=== PATIENT | female | born 1955 | race Caucasian/White ===

== ENCOUNTER → 2018-05-14 | Outpatient (CLI) | payer OTHER ==
--- NOTE | 2018-05-15 12:55 | MM ---
Reason for exam: screening (asymptomatic). Last mammogram was performed 15 years and 8 months ago. Physical Findings: A clinical breast exam by your physician is recommended on an annual basis and results should be correlated with mammographic findings. MG Screening Mammo w CAD Bilateral CC and MLO view(s) were taken. Prior study comparison: September 13, 2002, bilateral screening mammogram. September 10, 2000, bilateral screening mammogram. The breast tissue is almost entirely fat. Stable benign calcifications. There is no discrete abnormality. No significant changes when compared with prior studies. ASSESSMENT: Benign, BI-RAD 2 RECOMMENDATION: Routine screening mammogram of both breasts in 1 year.
== END | disposition home or self-care (01) ==
LOC: RADMAMWWP 07:52
PROVIDERS: ATTEND Family Medicine
DX: Z12.31 Encounter for screening mammogram for malignant neoplasm of breast (principal)
CPT/HCPCS: 77067

== ENCOUNTER 2018-05-18 08:34 | Day surgery (SDC) | payer OTHER ==
[2018-05-14 09:20] VITALS: BMI 41.4
[~2018-05-18 08:34] MED LIST: LACTATED RINGERS 1,000 ML IV SCH
[2018-05-18 09:34] VITALS: TEMP 97.7
[2018-05-18] MEDS ORDERED: LIDOCAINE 1% 20 ML VIAL (10MG/ML) FOR IV START INTRADERMA ONE (09:43)
[2018-05-18] MEDS ORDERED: PROPOFOL 10 MG/ML 20 ML VIAL IV ONE (10:15)
--- NOTE | 2018-05-18 10:40 | P.PCN ---
Date of Procedure: 05/18/18 Procedure(s) Performed: Procedure: Total colonoscopy. Preoperative diagnosis: Exam within normal limits. Preparation: HalfLytely prep. Sedation: Was provided by anesthesia. Brief clinical history: The patient is a 63-year-old male who is scheduled for this evaluation for screening for neoplasia age being her risk factor. There is no family history of colon cancer. She has no abdominal complaints, bleeding or anemia. She had a colonoscopy more than 20 years ago. Procedure: With the patient on her left lateral decubitus position and after informed consent and adequate sedation, the perianal area was inspected and it did not show any fissures or fistulas. There were no masses felt on digital rectal examination. The Olympus CFQ 160L video colonoscope was then inserted in the rectum in the usual fashion and advanced to the cecum. The mucosa appeared healthy. No polyps or tumors were seen or any obvious diverticular disease or other pathology. I retroflexed the endoscope in the rectum before the endoscope was withdrawn. Low-grade internal hemorrhoids were noted but there was no evidence of bleeding. The patient tolerated the procedure well. Plan: The patient was reassured. She will follow up with you as planned. Discussed dietary measures and local care for hemorrhoids. I recommended repeat exam in 10 years.
[2018-05-18 11:00] VITALS: BP 140/87; PULSE 78; RESP 18
== END 2018-05-18 11:30 | disposition home or self-care (01) ==
LOC: ORWHC2ENDO 08:34
DX: Z12.11 Encounter for screening for malignant neoplasm of colon (principal); K64.8 Other hemorrhoids; Z88.0 Allergy status to penicillin; Z88.7 Allergy status to serum and vaccine
CPT/HCPCS: 45378

== ENCOUNTER → 2019-07-20 | Outpatient (CLI) | payer OTHER ==
--- NOTE | 2019-07-22 13:34 | MM ---
Reason for exam: screening (asymptomatic). Last mammogram was performed 1 year and 2 months ago. History: Patient is postmenopausal. Physical Findings: A clinical breast exam by your physician is recommended on an annual basis and results should be correlated with mammographic findings. MG Screening Mammo w CAD Bilateral CC and MLO view(s) were taken. Prior study comparison: May 14, 2018, bilateral MG screening mammo w CAD. September 13, 2002, bilateral screening mammogram. There are scattered fibroglandular densities. Benign appearing scattered bilateral calcifications. No significant changes when compared with prior studies. ASSESSMENT: Benign, BI-RAD 2 RECOMMENDATION: Routine screening mammogram of both breasts in 1 year.
== END | disposition home or self-care (01) ==
LOC: RADMAMWWP 06:44
PROVIDERS: ATTEND Family Medicine
DX: Z12.31 Encounter for screening mammogram for malignant neoplasm of breast (principal)
CPT/HCPCS: 77067

== ENCOUNTER → 2020-02-10 | Outpatient (CLI) | payer OTHER ==
--- NOTE | 2020-02-11 09:05 | XR ---
EXAMINATION TYPE: XR shoulder complete RT DATE OF EXAM: 02/10/2020 COMPARISON: NONE HISTORY: 64-year-old female M2 5.511 TECHNIQUE: 3 views FINDINGS: Moderate degenerative joint space narrowing and marginal spurring at the AC joint. Subacromial space is preserved. This seems to be a small 5 mm calcific focus along the posterior greater tuberosity. No acute fracture, subluxation, or dislocation. IMPRESSION: 1. Moderate AC joint OA. 2. 5 mm density along the posterior greater tuberosity. Correlate for any potential symptoms of calci fic tendinitis of the rotator cuff. 3. Otherwise, no acute osseous abnormality seen.
== END | disposition home or self-care (01) ==
LOC: RADXRMAIN 16:48
PROVIDERS: ATTEND Family Medicine
DX: M19.011 Primary osteoarthritis, right shoulder (principal)

== ENCOUNTER 2020-07-18 11:37 | Emergency (ER) | payer OTHER ==
[2020-07-18 11:45] VITALS: TEMP 98.5
[2020-07-18] MEDS ORDERED: HYDROcodone/APAP 5-325MG 1 EACH TAB PO STA (11:57)
--- NOTE | 2020-07-18 12:01 | ED ---
Fall HPI - General Chief Complaint: Fall Stated Complaint: fall/knee pain Time Seen by Provider: 07/18/20 11:46 Source: patient, RN notes reviewed Mode of arrival: wheelchair Limitations: no limitations - History of Present Illness Initial Comments: 65-year-old female presents emergency Department with chief complaint of left knee pain. Patient states that she injured it on [place] states that she tripped over dog twisted her knee but states that she was resting, icing and elevating it was helping. Patient states she slipped on some ice today which made it worse. She has appointment on with orthopedics. Patient states he cannot tolerate the pain today. Patient denies any other complaints. She states she did not fall down onto her knee. - Related Data Home Medications Medication Instructions Recorded Confirmed Ascorbic Acid [Vitamin C] 500 mg PO DAILY 05/14/18 05/14/18 Cholecalciferol (Vitamin D3) 2,000 unit PO DAILY 05/14/18 05/14/18 [Vitamin D3] Cyanocobalamin (Vitamin B-12) 1,000 mcg PO DAILY 05/14/18 05/14/18 [Vitamin B-12] Vitamin E (Dl,Tocopheryl Acet) 400 unit PO DAILY 05/14/18 05/14/18 [Vitamin E] Previous Rx's Medication Instructions Recorded Hydrocodone/Acetaminophen [Mcalister 1 tab PO Q6HR PRN #12 tab 07/18/20 5-325] Allergies Allergy/AdvReac Type Severity Reaction Status Date / Time amoxicillin Allergy Rash/Hives Verified 07/18/20 11:42 Influenza Virus Vaccines Allergy kidney Verified 07/18/20 11:42 failure Review of Systems ROS Statement: Those systems with pertinent positive or pertinent negative responses have been documented in the HPI. ROS Other: All systems not noted in ROS Statement are negative. Past Medical History Additional Past Medical History / Comment(s): kidney biopsy Additional Past Surgical History / Comment(s): Tonsilectomy Past Psychological History: No Psychological Hx Reported Smoking Status: Never smoker Past Alcohol Use History: Occasional Past Drug Use History: None Reported General Exam Limitations: physical limitation General appearance: alert, in no apparent distress Head exam: Present: atraumatic, normocephalic, normal inspection Neck exam: Present: normal inspection, full ROM. Absent: tenderness, meningismus, lymphadenopathy Respiratory exam: Present: normal lung sounds bilaterally. Absent: respiratory distress, wheezes, rales, rhonchi, stridor Cardiovascular Exam: Present: regular rate, normal rhythm, normal heart sounds. Absent: systolic murmur, diastolic murmur, rubs, gallop, clicks Extremities exam: Present: other (Left knee there is moderate swelling noted, tenderness with palpation on the medial aspect, there is no tenderness proximal or distal of left knee neurovascular intact no definite laxity pain with valgus and varus) Neurological exam: Present: alert, reflexes normal. Absent: motor sensory deficit Skin exam: Present: warm, dry, intact, normal color. Absent: rash Course Vital Signs 07/18/20 11:42 Temperature 98.5 F Pulse Rate 83 Respiratory 16 Rate Blood Pressure 166/95 O2 Sat by Pulse 98 Oximetry Medical Decision Making - Medical Decision Making 65-year-old presented for pain x-rays reviewed no acute abnormality. Patient has a left knee sprain concern for ligamentous injury. Patient will follow-up with orthopedics at her scheduled appointment on . Disposition Clinical Impression: Left knee sprain Disposition: HOME SELF-CARE Condition: Stable Instructions (If sedation given, give patient instructions): Knee Sprain (ED) Additional Instructions: Please return to the Emergency Department if symptoms worsen or any other concerns. Prescriptions: Hydrocodone/Acetaminophen [Mcalister 5-325] 1 tab PO Q6HR PRN #12 tab PRN Reason: Pain Is patient prescribed a controlled substance at d/c from ED?: Yes When asked, does pt state using other controlled substances?: No If prescribed controlled substance>3 days was MAPS reviewed?: Prescribed <3 Days If opioid is for acute pain is fill amount 7 days or less?: Yes If Rx opioid, was Start Talking consent form obtained?: Yes Referrals: Donaldo Cerda DO [Primary Care Provider] - 1-2 days Time of Disposition: 13:04
--- NOTE | 2020-07-18 12:41 | XR ---
EXAMINATION TYPE: XR knee complete LT DATE OF EXAM: 07/18/2020 COMPARISON: None HISTORY: Pain TECHNIQUE: Three-view left knee FINDINGS: Joint spaces are preserved. There is a lateral femoral condylar spur present. Minimal later al tibial plateau spur may be present. Posterior joint space calcification is present. Patellofemoral joint space is preserved. No joint effusion is evident. IMPRESSION: 1. No acute osseous abnormality. 2. Follow-up exams can be performed 7-10 days from acute trauma for continued pain.
[2020-07-18 13:11] VITALS: BP 142/80; PULSE 71; RESP 17
== END 2020-07-18 13:23 | disposition home or self-care (01) ==
LOC: EC 11:37
DX: S83.92XA Sprain of unspecified site of left knee, initial encounter (principal); Z88.0 Allergy status to penicillin; Z88.7 Allergy status to serum and vaccine; Z79.899 Other long term (current) drug therapy; W00.0XXA Fall on same level due to ice and snow, initial encounter; W18.49XA Other slipping, tripping and stumbling without falling, initial encounter; Y92.009 Unspecified place in unspecified non-institutional (private) residence as the place of occurrence of the external cause
CPT/HCPCS: 29505; 99283

== ENCOUNTER → 2020-08-17 | Outpatient (CLI) | payer OTHER ==
--- NOTE | 2020-08-18 14:59 | MM ---
Reason for exam: screening (asymptomatic). Last mammogram was performed 1 year and 1 month ago. History: Patient is postmenopausal. Physical Findings: A clinical breast exam by your physician is recommended on an annual basis and results should be correlated with mammographic findings. MG Screening Mammo w CAD Bilateral CC and MLO view(s) were taken. Prior study comparison: July 20, 2019, bilateral MG screening mammo w CAD. May 14, 2018, bilateral MG screening mammo w CAD. There are scattered fibroglandular densities. There are benign appearing round calcifications bilaterally. There is no discrete abnormality. ASSESSMENT: Benign, BI-RAD 2 RECOMMENDATION: Routine screening mammogram of both breasts in 1 year.
== END | disposition home or self-care (01) ==
LOC: RADMAMWWP 15:59
PROVIDERS: ATTEND Family Medicine
DX: Z12.31 Encounter for screening mammogram for malignant neoplasm of breast (principal)
CPT/HCPCS: 77067

== ENCOUNTER → 2021-02-15 | Outpatient (CLI) | payer OTHER | END | disposition home or self-care (01) | LOC: LABWHC1 12:00 | PROVIDERS: ATTEND Family Medicine | DX: Z20.822 Contact with and (suspected) exposure to COVID-19 (principal); J06.9 Acute upper respiratory infection, unspecified | CPT/HCPCS: U0003; U0005 ==

== ENCOUNTER → 2022-10-08 | Outpatient (CLI) | payer MEDICARE, OTHER ==
--- NOTE | 2022-10-09 07:57 | MM ---
Reason for Exam: Screening (asymptomatic). Last mammogram was performed 2 year(s) and 2 month(s) ago. Patient History: Menarche at age 13. First Full-Term at age 27. Postmenopausal. Risk Values: Kati 5 year model risk: 2.0%. NCI Lifetime model risk: 7.6%. Prior Study Comparison: 05/14/2018 Bilateral Screening Mammogram, [facility]. 07/20/2019 Bilateral Screening Mammogram, [facility]. 08/17/2020 Bilateral Screening Mammogram, [facility]. Tissue Density: There are scattered fibroglandular densities. Findings: Analyzed By CAD. There is no suspicious group of microcalcifications or new suspicious mass in either breast. Overall Assessment: Negative, BI-RAD 1 Management: Screening Mammogram of both breasts in 1 year. A clinical breast exam by your physician is recommended on an annual basis and results should be correlated with mammographic findings. Electronically signed and approved by: Randell Golden M.D. Radiologis
== END | disposition home or self-care (01) ==
LOC: RADMAMWWP 09:08
PROVIDERS: ATTEND Family Medicine
DX: Z12.31 Encounter for screening mammogram for malignant neoplasm of breast (principal); Z78.0 Asymptomatic menopausal state
CPT/HCPCS: 77067

== ENCOUNTER → 2023-10-14 | Outpatient (CLI) | payer MEDICARE | END | disposition home or self-care (01) | LOC: RADUSWWP 07:13 | PROVIDERS: ATTEND Family Medicine | DX: Z53.9 Procedure and treatment not carried out, unspecified reason (principal) ==

== ENCOUNTER → 2023-10-14 | Outpatient (CLI) | payer MEDICARE ==
--- NOTE | 2023-10-14 12:43 | US ---
EXAMINATION TYPE: US liver DATE OF EXAM: 10/14/2023 COMPARISON: NONE CLINICAL INDICATION: Female, 68 years old with history of R74.01 ELEVATION OF LEVELS OF LIVER TRANSAM INASE; elevated liver enzymes exam limitations due to body habitus. TECHNIQUE: Multiple sonographic images of the right upper quadrant are obtained. FINDINGS: EXAM MEASUREMENTS: Liver Length: 16.1 cm Gallbladder Wall: .3 cm. Gallbladder wall is at the upper limits of normal for size CBD: .5 cm Right Kidney: 9.1 x 4.6 x 4.5 cm TAPPET ADJUSTER NOTES: Pancreas: Tail obscured by overlying bowel gas Liver: Increased attenuation Gallbladder: 1.2 cm stone visualized Evidence for sonographic Moncada's sign: no CBD: wnl Right Kidney: No hydronephrosis or masses seen IMPRESSION: 1. Cholelithiasis.
--- NOTE | 2023-10-14 19:51 | BD ---
EXAMINATION TYPE: Axial Bone Density DATE OF EXAM: 10/14/2023 CLINICAL HISTORY: 68 years old Female. ICD-10 CODE: Z78.0 ASYMOTOMATIC MENOPAUSAL Height: 63.5 in Weight: 266 lbs FRAX RISK QUESTIONS: History of Fracture in Adulthood: rt foot fx age 26 EXAM MEASUREMENTS: Bone mineral densitometry was performed using the [employer] System. Bone mineral density as measured about the Lumbar spine is: ----- L1-L4(G/cm2): 1.296 T Score Values are as follows: ----- L1: 1.0 ----- L2: 1.5 ----- L3: 0.6 ----- L4: 0.7 ----- L1-L4: 1.0 Z Score Values are as follows: ----- L1: 1.4 ----- L2: 2.0 ----- L3: 1.0 ----- L4: 1.2 ----- L1-L4: 1.4 Bone mineral density baseline Bone mineral density about the R hip (g/cm2): 1.118 Bone mineral density about the L hip (g/cm2): 1.100 T Score values are as follows: -----R Neck: 0.9 -----L Neck: 0.3 -----R Total: 0.9 -----L Total: 0.7 Z Score values are as follows: -----R Neck: 1.6 -----L Neck: 1.1 -----R Total: 1.3 -----L Total: 1.2 Bone mineral density baseline FRAX%s: The graph provided illustrates a 9.1% chance for a major osteoporotic fx and a 0.2% chance fo r the hips probability for fx in 10 years time. IMPRESSION: Normal (Values between +1 and -1 indicate normal bone mass). Consider repeating this study in 5 year s or sooner if there is some new clinical indication. NOTE: T-SCORE=SD OF THE YOUNG ADULT MEAN.
== END | disposition home or self-care (01) ==
LOC: RADMAMWWP 07:12
PROVIDERS: ATTEND Family Medicine
DX: Z12.31 Encounter for screening mammogram for malignant neoplasm of breast (principal); K80.20 Calculus of gallbladder without cholecystitis without obstruction; R74.8 Abnormal levels of other serum enzymes; Z78.0 Asymptomatic menopausal state
CPT/HCPCS: 76705; 77063; 77067; 77080

== ENCOUNTER → 2024-10-20 | Outpatient (CLI) | payer MEDICARE ==
--- NOTE | 2024-10-20 15:12 | XR ---
EXAMINATION TYPE: XR knee complete bilateral DATE OF EXAM: 10/20/2024 3:03 PM COMPARISON: 07/18/2020 CLINICAL INDICATION: Female, 69 years old with history of M25.561 Pain left knee; PHH, pain TECHNIQUE: XR knee complete bilateral 3 views submitted. FINDINGS: Right: No evidence of any acute osseous pathology, soft tissue swelling, or joint effusion is noted. Severe joint space narrowing of the right knee lateral compartment with osteophyte formation of the p atella and tibial plateau. Worse in the lateral tibial plateau.. A fabella is present. Left: No evidence of any acute osseous pathology, soft tissue swelling, or joint effusion is noted. A fabella is present. The left knee demonstrates degeneration changes with joint space narrowing osteo phyte formation of the patella and tibial plateau. IMPRESSION: 1. No acute osseous pathology. 2. 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 [facility], , 10/20/2024 3:10 PM
== END | disposition home or self-care (01) ==
LOC: RADXRMAIN 14:34
PROVIDERS: ATTEND Family Medicine
DX: M25.561 Pain in right knee (principal); M81.0 Age-related osteoporosis without current pathological fracture

== ENCOUNTER → 2025-01-19 | Outpatient (CLI) | payer MEDICARE ==
--- NOTE | 2025-01-19 15:08 | MM ---
Reason for Exam: Screening (asymptomatic). Last mammogram was performed 1 year(s) and 4 month(s) ago. Patient History: Menarche at age 13. First Full-Term at age 27. Postmenopausal. Patient used Hormonal Contraceptives for 15 years. Risk Values: Kati 5 year model risk: 2.1%. NCI Lifetime model risk: 7.0%. Prior Study Comparison: 08/17/2020 Bilateral Screening Mammogram, [facility]. 10/08/2022 Bilateral MG screening mammo w CAD, [facility]. 10/14/2023 Bilateral MG 3D screening mammo w/cad, [facility]. Tissue Density: There are scattered areas of fibroglandular density. Findings: Analyzed By CAD. There is no suspicious group of microcalcifications or new suspicious mass in either breast. Overall Assessment: Negative, BI-RAD 1 Management: Screening Mammogram of both breasts in 1 year. Patient should continue monthly self-breast exams. A clinical breast exam by your physician is recommended on an annual basis. This exam should not preclude additional follow-up of suspicious palpable abnormalities. Note on Kati scores and lifetime risk: 1. A Kati score greater than 3% is considered moderate risk. If this is the case, consider specialist referral to assess eligibility for a risk reducing agent. 2. If overall lifetime risk for the development of breast cancer is 20% or higher, the patient may qualify for future screening with alternating mammogram and breast MRI. [facility], , 01/19/2025 3:05 PM. Electronically signed and approved by: Lulu Charles M.D. Radiologist
== END | disposition home or self-care (01) ==
LOC: RADMAMWWP 09:08
PROVIDERS: ATTEND Family Medicine
DX: Z12.31 Encounter for screening mammogram for malignant neoplasm of breast (principal); R92.323 Mammographic fibroglandular density, bilateral breasts; Z78.0 Asymptomatic menopausal state; Z92.0 Personal history of contraception
CPT/HCPCS: 77063; 77067